=== PATIENT | female | born 1960 | race Hispanic/Latino ===

== ENCOUNTER 2019-02-22 21:39 | Emergency (ER) | payer OTHER ==
[~2019-02-22] VITALS: Ht 162.6 cm; Wt 63.5 kg
--- OUTSIDE RECORDS SUMMARY | 2019-02-22 21:42 | XMS REPORT | Encounter Summary ---
Author Organization Unknown Address [address] [place] [address] Phone [phone] Care Team Providers Care Service Control Operator Name Role Phone Dr. Chel Carmona 3 [phone] Flo Mcconnell MD 3 [phone] Joe Weiss MD Facp Face [phone] Reason for Visit sinus symptoms Instructions 1. Allergic rhinitis montelukast 10 mg tablet Dymista 137 mcg-50 mcg/spray nasal spray Discussion Note: None recorded. Patient educational handouts: No information available. Plan of Care Reminders Provider Appointments None recorded. Lab None recorded. Referral None recorded. Procedures None recorded. Surgeries None recorded. Imaging None recorded. Medications Name Start Date Dymista 137 mcg-50 mcg/spray nasal spray [place] 1 spray twice a day by intranasal route as directed for 30 days. estradiol 1 mg tablet montelukast 10 mg tablet Take 1 tablet every day by oral route as directed for 30 days. Synthroid 150 mcg tablet Zyrtec-D 5 mg-120 mg tablet,extended release Take 1 tablet every 12 hours by oral route. Medications Administered None recorded. Vitals Height Weight BMI Blood Pressure 5 ft 5.5 in 142.8 lbs 23.4 kg/m2 100/62 mm[Hg] Lab Results Date Name Specimen Result Interpretation Description Value Range Status Address 01/23/2019 Rapid Flu (A+B) Type Flu a negative [place] ([facility]) [place]: [address] [facility] Type Flu B negative [place] ([facility]) [place]: [address] [facility] Allergies Code Code System Name Reaction Severity Status Onset 0769161 RxNorm Sesame Seed Hives Severe Active Wellbutrin Active Problems Name Status Onset Date Source Hypothyroidism Active 03/30/2016 Anxiety Active 03/30/2016 Hypertensive Disorder Active 03/30/2016 Chronic Back Pain Active 03/30/2016 Patulous Eustachian Tube Active 06/26/2018 Procedures Date Name Performed by 07/08/2017 Other Information not available 07/08/2017 Other Information not available Hysterectomy (Partial) Information not available Colonoscopy Information not available Vaccine List Vaccine Type Influenza, injectable, MDCK, quadrivalent 06/03/20170.5 mL influenza, unspecified formulation 03/22/2016 Tdap 08/29/20160.5 mL Social History Tobacco Smoking Status Never Smoker Past Encounters 02/06/2019 Allergic Rhinitis Flo France MD: [address] [place] [address], Ph. 01/23/2019 Acute Sinusitis; Body Mass Index 20-24 - Normal; Sinus Headache Flo France MD: [address] [place] [address], Ph. History of Present Illness Note:F/u on acute sinusitis. Pt completed 10 days of augmentin 2 days ago and 5 days of medrol dose alfred on 01/30/19. However, she is complaining of persistent runny nose and sinus congestion. Denies sore throat, cough or fever. Pt had some improvement in the symptoms while taking the meds. Review of Systems Comprehensive General Adult ROS Reported By: Patient Constitutional: Constitutional: no fever Eyes: Eyes: no vision change, no irritation ENMT: Ears: difficulty hearing, ear pain. Nose: no frequent nosebleeds, no nose problems, sinus problems. Mouth/Throat: no sore throat Cardiovascular: Cardiovascular: no chest pain, no palpitations, no lightheadedness Respiratory: Respiratory: no cough, no wheezing, no shortness of breath, no coughing up blood Gastrointestinal: Gastrointestinal: no abdominal pain, no nausea, no vomiting, no diarrhea Neurologic: Neurologic: no headaches Endocrine: Endocrine: no fatigue Physical Exam General Adult Exam (male) Reported By: Patient Constitutional: General Appearance: healthy-appearing. Level of Distress: NAD Psychiatric: Insight: good judgement. Mental Status: active and alert, normal mood, normal affect. Orientation: to time, to place, to person. Memory: recent memory normal, remote memory normal Eyes: Lids and Conjunctivae: non-injected, no discharge. EOM: EOMI ENMT: Ears: TMs clear. Nose: sinus tenderness, nasal discharge--rhinorrhea, post nasal drip. Lips, Teeth, and Gums: no mouth or lip ulcers. Oropharynx: moist mucous membranes, no exudates, tonsils not enlarged, erythema Neck: Neck: supple, trachea midline. Lymph Nodes: no cervical LAD Lungs: Auscultation: breath sounds normal Cardiovascular: Heart Auscultation: RRR, normal S1, normal S2, no murmurs. Neck vessels: no carotid bruits Musculoskeletal:: Motor Strength and Tone: normal, normal tone. Extremities: no edema Neurologic: Gait and Station: normal gait
--- OUTSIDE RECORDS SUMMARY | 2019-02-22 21:42 | XMS REPORT ---
Author Jose Ashby [facility] eClinicalWorks Address Unknown Phone Unavailable Care Team Providers Care Director Geophysical Laboratory Name Role Phone Jose Lee CP Unavailable Allergies, Adverse Reactions, Alerts Substance Reaction Event Type N.K.D.A. Info Not Available Non Drug Allergy Problems Problem Type Condition Code Onset Dates Condition Status Assessment Patulous Eustachian tube, bilateral H69.03 Active Problem Arthralgia of bilateral temporomandibular joint M26.623 Active Problem Deviated nasal septum J34.2 Active Problem Unspecified Eustachian tube disorder, bilateral H69.93 Active Problem Patulous Eustachian tube, bilateral H69.03 Active Problem Headache R51 Active Problem Unspecified disorder of ear, unspecified ear H93.90 Active Problem Hearing loss, Sensorineural - Bilateral H90.3 Active Problem Hearing loss, Perceived- Bilateral H93.293 Active Problem Otalgia, bilateral H92.03 Active Assessment Headache R51 Active Assessment Hearing loss, Sensorineural - Bilateral H90.3 Active Assessment Arthralgia of bilateral temporomandibular joint M26.623 Active Assessment Deviated nasal septum J34.2 Active Medications Medication Code System Code Instructions Start Date End Date Status Dosage Synthroid [facility] [address]-99 Active not defined Results No Known Results Summary Purpose eClinicalWorks Submission
--- OUTSIDE RECORDS SUMMARY | 2019-02-22 21:42 | XMS REPORT | Clinical Summary ---
Author Author [facility] Address Unknown Phone Unavailable Care Team Providers Care Head Mva Reactor Operator Name Role Phone Asked, No Pcp PCP Unavailable Allergies Not on File Medications Not on file Active Problems Not on file Encounters Care Team Description Date Type Specialty 03/27/2018 Clinical Corporate Wellness Support after 02/21/2018 Immunizations Name Administration Dates Next Due FLUCELVAX QUAD PF (0.5mL 03/27/2018 syringe) Social History Date Tobacco Use Types Packs/Day Years Used Never Assessed Sex Assigned at Date Recorded Not on file Industry Job Start Date Occupation Not on file Not on file Not on file Travel End Travel History Travel Start No recent travel history available. Last Filed Vital Signs Not on file Plan of Treatment Health Maintenance Due Date Last Done Comments BREAST CANCER SCREENING 2011 COLONOSCOPY SCREENING 2011 SHINGLES VACCINES (#1) 2011 INFLUENZA VACCINE 02/05/2019 03/27/2018, 06/03/2017, 03/22/2016 Results Not on fileafter 02/21/2018 Insurance Type Payer Benefit Subscriber ID Effective Phone Address Plan / Dates Group PPO CIGNA CIGNA PPO xxxxxxxxxxx [id number] resent (Home) [place] [address] Advance Directives Patient Frontload Driver Explanation Type Date Recorded Advance Directives, Living Will and Medical Power of Assembly Worker
--- OUTSIDE RECORDS SUMMARY | 2019-02-22 21:42 | XMS REPORT ---
Author Jose Ashby [facility] eClinicalWorks Address Unknown Phone Unavailable Care Team Providers Care Rand Maker Name Role Phone Jose Lee CP Unavailable Allergies, Adverse Reactions, Alerts Substance Reaction Event Type N.K.D.A. Info Not Available Non Drug Allergy Problems Problem Type Condition Code Onset Dates Condition Status Assessment Hearing loss, Sensorineural - Bilateral H90.3 Active Assessment Deviated nasal septum J34.2 Active Problem Unspecified disorder of ear, unspecified ear H93.90 Active Problem Hearing loss, Sensorineural - Bilateral H90.3 Active Problem Otalgia, bilateral H92.03 Active Assessment Arthralgia of bilateral temporomandibular joint M26.623 Active Assessment Unspecified disorder of ear, unspecified ear H93.90 Active Problem Arthralgia of bilateral temporomandibular joint M26.623 Active Problem Deviated nasal septum J34.2 Active Medications Medication Code System Code Instructions Start Date End Date Status Dosage Robaxin-750 [facility] [id number] 750 MG Orally at bedtime January 27, 2018 Feb 26, 2018 Active 1/2 a tablet Synthroid [facility] [address]-84 Active not defined Results No Known Results Summary Purpose eClinicalWorks Submission
--- OUTSIDE RECORDS SUMMARY | 2019-02-22 21:42 | XMS REPORT | Encounter Summary ---
Author Organization Unknown Address [address] [place] [address] Phone [phone] Care Team Providers Care Pearler Name Role Phone Dr. Chel Carmona 3 [phone] Flo Mcconnell MD 3 [phone] Joe Weiss MD Facp Face [phone] Reason for Visit Hypothyroidism; Bilateral eye problem/disorder Instructions 1. Hypothyroidism TSH, serum or plasma T4, free, serum T3, free, serum or plasma 2. Body mass index 20-24 - normal 3. Allergic conjunctivitis Pataday 0.2 % eye drops hydroxyzine HCl 25 mg tablet 4. Patulous eustachian tube 5. Hypertensive disorder Discussion Note: None recorded. Patient educational handouts: No information available. Plan of Care Reminders Provider Appointments Return to Office on or around 12/30/2018 Chel Carmona MD Lab TSH, Serum or Plasma 09/29/2018 [facility] T4, Free, Serum 09/29/2018 [facility] T3, Free, Serum or Plasma 09/29/2018 [facility] Referral None recorded. Procedures None recorded. Surgeries None recorded. Imaging None recorded. Medications Name Start Date estradiol 1 mg tablet hydroxyzine HCl 25 mg tablet Take 1 tablet every day by oral route at bedtime. may be sedating Pataday 0.2 % eye drops INSTILL 1 DROP INTO AFFECTED EYE(S) BY OPHTHALMIC ROUTE ONCE DAILY Synthroid 137 mcg tablet Take 1 tablet every day by oral route. Medications Administered None recorded. Vitals Height Weight BMI Blood Pressure 5 ft 7 in 151.8 lbs 23.8 kg/m2 114/78 mm[Hg] Lab Results None recorded. Allergies Code Code System Name Reaction Severity Status Onset 5878668 RxNorm Sesame Seed Hives Severe Active 67418 RxNorm Wellbutrin Active NKDA Problems Name Status Onset Date Source Hypothyroidism Active 03/30/2016 Anxiety Active 03/30/2016 Hypertensive Disorder Active 03/30/2016 Chronic Back Pain Active 03/30/2016 Patulous Eustachian Tube Active 06/26/2018 Procedures Date Name Performed by 07/08/2017 Other Information not available 07/08/2017 Other Information not available 06/17/2014 Colonoscopy Information not available Hysterectomy (Partial) Information not available Vaccine List Vaccine Type Influenza, injectable, MDCK, quadrivalent 06/03/20170.5 mL influenza, unspecified formulation 03/22/2016 Tdap 08/29/20160.5 mL Social History Smoking Status Never Smoker Past Encounters 09/29/2018 Hypothyroidism; Body Mass Index 20-24 - Normal; Allergic Conjunctivitis; Patulous Eustachian Tube; Hypertensive Disorder Chel Carmona MD: [address] [place] [phone], Ph. 09/26/2018 Chel Carmona MD: [address] [place] [address], Ph. History of Present Illness Note:58yo female presents for three-month follow-up visit. Last visit 06/02/18. Since last visit, pt saw ENT Dr Andrew Hollis in [facility] the day after our appt on 06/03/18 - he placed ear tubes in both ears at that appt for patulous Eustachian tubes. Pt did not find that it helped. Next appt with Dr Hollis is October 10, 2018.<div>No pain, but ear pressure with amplified sound. Very frustrating.
<div>Since last visit, pt flew to [place] twice & did not feel any pressure change in fullness with elevation.</div><div>Since last visit, pt had f/u visit with Dr Michael last Saturday09/26/18. Next appt in 3mo in December 2018 (one-year follow-up). Pt had bloodwork in Jul 2018 - everything was good except thyroid. Pt had gastric sleeve surgery on 12/30/[address] Michael. Starting weight prior to surgery was about 212# - pt currently weighs 151.8# on our office scale today. Has lost over 50# since surgery in December! Sees Dr Michael every three months. Is taking multivitamin from Dr Michael's office every day in addition to calcium. He is monitoring bloodwork closely.</div><div><div> Regarding thyroid, pt is currently taking Synthroid 137mcg/day. Last TSH on 05/09 12/23 was 0.005 with prior TSH on 02/18/18 was suppressed at 0.009. Will check TS H today.</div><div>Allergies: wellbutrin
</div><div>Nonsmoker.</div><div>Here today for rash around eyes since yesterday. Swelling around eyes L>R. No change in vision, no fever, no redness to eye, no watery eyes, no pus. Some dry, itchy eyelids, not eyes. No new makeup or eye cream. Has Zyrtec, but hasn't been using it.</div></div></div> Review of Systems:ROS as noted in the HPI Review of Systems Comprehensive General Adult ROS Reported By: Patient Constitutional: Constitutional: no fever Eyes: Eyes: no vision change, dry eyes, irritation ENMT: Ears: difficulty hearing, ear pain. Nose: no frequent nosebleeds, no nose problems, no sinus problems. Mouth/Throat: no sore throat Cardiovascular: Cardiovascular: no chest pain Respiratory: Respiratory: no cough, no wheezing, no shortness of breath, no coughing up blood Gastrointestinal: Gastrointestinal: no abdominal pain, no nausea, no vomiting, no diarrhea Neurologic: Neurologic: no headaches Endocrine: Endocrine: no fatigue Physical Exam Upper Respiratory Infection Exam Comprehensive Reported By: Patient Constitutional: General Appearance in no acute distress Skin: Inspection and palpation: no rash Head: Sinuses no tenderness Eyes: Pupils EOM intact, PERRLA, conjunctiva non-injected; see photo of left eyelids Ears: Right External auditory canal normal appearance. Left External auditory canal normal appearance. Right Tympanic membrane dull; green ear tube intact. Left Tympanic membrane: dull; green ear tube intact Nose: Nasal Skin: no lesion. Nasal Mucosa normal Oral Cavity/Mouth: Oral Mucosa: normal, moist. Posterior pharynx: normal Lymph Nodes: Cervical no palpable lymph node enlargement, no submandibular adenopathy, no posterior cervical adenopathy, no anterior cervical adenopathy Neck: Neck symmetrical Lungs: Respiratory effort unlabored. Auscultation breath sounds normal, no wheezing, no rales / crackles Cardiovascular System: Auscultation regular rate and rhythm, no murmur. Observation/Palpation of peripheral vascular system carotid pulse normal, no edema
--- OUTSIDE RECORDS SUMMARY | 2019-02-22 21:42 | XMS REPORT ---
Author Jose Ashby [facility] eClinicalWorks Address Unknown Phone Unavailable Care Team Providers Care Rejected Items Clerk Name Role Phone Jose Lee CP Unavailable Allergies No Known Allergies Problems Problem Type Condition Code Onset Dates Condition Status Problem Otalgia, bilateral H92.03 Active Problem Unspecified disorder of ear, unspecified ear H93.90 Active Problem Patulous Eustachian tube, bilateral H69.03 Active Problem Unspecified Eustachian tube disorder, bilateral H69.93 Active Problem Hearing loss, Perceived- Bilateral H93.293 Active Problem Deviated nasal septum J34.2 Active Problem Hearing loss, Sensorineural - Bilateral H90.3 Active Problem Headache R51 Active Problem Arthralgia of bilateral temporomandibular joint M26.623 Active Medications No Known Medications Results No Known Results Summary Purpose [place] ObjectsinicalWorks Submission
--- OUTSIDE RECORDS SUMMARY | 2019-02-22 21:42 | XMS REPORT ---
Author Jose Ashby [facility] eClinicalWorks Address Unknown Phone Unavailable Care Team Providers Care Continuous Washer Operator Name Role Phone Jose Lee CP Unavailable Allergies No Known Allergies Problems Problem Type Condition Code Onset Dates Condition Status Problem Unspecified disorder of ear, unspecified ear H93.90 Active Problem Hearing loss, Sensorineural - Bilateral H90.3 Active Problem Otalgia, bilateral H92.03 Active Problem Arthralgia of bilateral temporomandibular joint M26.623 Active Problem Deviated nasal septum J34.2 Active Medications No Known Medications Results No Known Results Summary Purpose eClinicalWorks Submission
--- OUTSIDE RECORDS SUMMARY | 2019-02-22 21:42 | XMS REPORT ---
Author Author [facility] Address Unknown Phone Unavailable Care Team Providers Care Entry Engineer Name Role Phone Unavailable Unavailable Problems This patient has no known problems. Allergies, Adverse Reactions, Alerts This patient has no known allergies or adverse reactions. Medications This patient has no known medications. Results Test Description Test Time Test Comments Text Results Atomic Results Result Comments SCR MAMM BILATERAL MOISES CAD DIGITAL 2018-08-04 13:08:23 - SCR MAMM BILATERAL MOISES CAD DIGITALBILATERAL DIGITAL SCREENING MAMMOGRAM 3D/2D WITH CAD: 08/02/2018CLINICAL: Asymptomatic. Digital breast tomosynthesis was performed in addition to routine CC and MLO views. Current mammographic images were evaluated by either a Endorse.me M-Vu or a Captricity ImageChecker CAD (computer aided detection system). Comparison is made to exams dated 08/01/2017 ultrasound, mammogram - [facility], 03/30/2016 ultrasound, 03/30/2016 mammogram, 04/30/2015 mammogram, and 04/07/2014 mammogram - [facility]. The tissue of both breasts is predominantly fatty. No suspicious mass, architectural distortion, malignant type calcification, or lymph node abnormality detected. Breast architecture is stable compared to prior exams.IMPRESSION: NEGATIVEThere is no mammographic evidence of malignancy. Resume annual screening mammography in one year. Chiara pringle/penniki:08/04/2018 13:08:23 Cio: Kathy COBIAN, [facility] sent: BIRADS 1-2 Normal Mammogram BI-RADS: 1 Negative
--- OUTSIDE RECORDS SUMMARY | 2019-02-22 21:42 | XMS REPORT | Encounter Summary ---
Author Organization Unknown Address [address] [place] [address] Phone [phone] Care Team Providers Care Nursing Educator Name Role Phone Dr. Chel Carmona 3 [phone] Flo Mcconnell MD 3 [phone] Joe Weiss MD Facp Face [phone] Reason for Visit sinus symptoms; Left ear pain/problem; headaches Instructions 1. Acute sinusitis Augmentin 875 mg-125 mg tablet Kenalog 40 mg/mL suspension for injection Medrol (Maxime) 4 mg tablets in a dose pack 2. Body mass index 20-24 - normal 3. Sinus headache rapid flu (A+B) Discussion Note: None recorded. Patient educational handouts: No information available. Plan of Care Reminders Provider Appointments None recorded. Lab Rapid Flu (A+B) 01/23/2019 [facility] [place] Referral None recorded. Procedures None recorded. Surgeries None recorded. Imaging None recorded. Medications Name Start Date Augmentin 875 mg-125 mg tablet Take 1 tablet every 12 hours by oral route as directed for 10 days. estradiol 1 mg tablet fluticasone propionate 50 mcg/actuation nasal spray,suspension [place] 1 spray twice a day by intranasal route as directed for 14 days. Kenalog 40 mg/mL suspension for injection Take 40 mg by injection route. Medrol (Maxime) 4 mg tablets in a dose pack Take 1 dose pk by oral route. Synthroid 150 mcg tablet Zyrtec 10 mg tablet Take 1 tablet every 12 hours by oral route. Medications Administered Name Date Kenalog 40 mg/mL suspension for injection Take 40 mg by injection route. [id number]:00 Vitals Height Weight BMI Blood Pressure 5 ft 5.5 in 144.6 lbs 23.7 kg/m2 118/72 mm[Hg] Lab Results None recorded. Allergies Code Code System Name Reaction Severity Status Onset 5869159 RxNorm Sesame Seed Hives Severe Active Wellbutrin Active NKDA Problems Name Status Onset [...] History Smoking Status Never Smoker Past Encounters 01/23/2019 Acute Sinusitis; Body Mass Index 20-24 - Normal; Sinus Headache Flo France MD: [address] [place] [phone], Ph. History of Present Illness Note:Pt is complaining of runny nose, nasal congestion, sinus pressure, left ear pain, dry cough and sore throat since 1 month ago. Not better with zyrtec or fluticasone NS. Denies sob, wheezing or chest pain Review of Systems:ROS as noted in the HPI Review of Systems None recorded. Physical Exam General Adult Exam (male) Reported By: Patient Constitutional: General Appearance: healthy-appearing. Level of Distress: NAD Psychiatric: Insight: good judgement. Mental Status: active and alert, normal mood, normal affect. Orientation: to time, to place, to person. Memory: recent memory normal, remote memory normal Eyes: Lids and Conjunctivae: non-injected, no discharge. EOM: EOMI ENMT: Ears: TMs clear. Nose: sinus tenderness, nasal discharge--purulent, post nasal drip. Lips, Teeth, and Gums: no mouth or lip ulcers. Oropharynx: moist mucous membranes, no exudates, tonsils not enlarged, erythema Neck: Neck: supple, trachea midline. Lymph Nodes: cervical LAD Lungs: Auscultation: breath sounds normal Cardiovascular: Heart Auscultation: RRR, normal S1, normal S2, no murmurs. Neck vessels: no carotid bruits Musculoskeletal:: Motor Strength and Tone: normal, normal tone. Extremities: no edema Neurologic: Gait and Station: normal gait Skin: Inspection and palpation: no rash, no lesions
--- OUTSIDE RECORDS SUMMARY | 2019-02-22 21:42 | XMS REPORT ---
Author Jose Ashby [facility] eClinicalWorks Address Unknown Phone Unavailable Care Team Providers Care Electrolytic Etcher Name Role Phone Jose Lee CP Unavailable [...] Medications Results No Known Results Summary Purpose [place] [employer] Submission
--- OUTSIDE RECORDS SUMMARY | 2019-02-22 21:42 | XMS REPORT ---
Author Jose Ashby [facility] eClinicalWorks Address Unknown Phone Unavailable Care Team Providers Care Cloth Wire Weaver Name Role Phone Jose Lee CP Unavailable [...] Start Date End Date Status Dosage Robaxin-750 [facility] [id number] 750 MG Orally at bedtime January 27, 2018 Feb 26, 2018 Active 1/2 a tablet Synthroid [facility] [address]-96 Active not defined Results No Known Results Summary Purpose eClinicalWorks Submission
--- OUTSIDE RECORDS SUMMARY | 2019-02-22 21:42 | XMS REPORT | Encounter Summary ---
Author Organization Unknown Address [address] [place] [id number] Phone [phone] Care Team Providers Care Breast Surgeon Name Role Phone Dr. Chel Carmona 3 [phone] Flo Mcconnell MD 3 [phone] Joe Weiss MD Facp Face [phone] Reason for Visit cough / congestion Instructions 1. Body mass index 20-24 - normal 2. Acute bronchitis ceftriaxone 1 gram solution for injection Zithromax Z-Maxime 250 mg tablet Cheratussin AC 10 mg-100 mg/5 mL oral liquid Discussion Note: None recorded. Patient educational handouts: No information available. Plan of Care Patient Instructions meds as directed Reminders Provider Appointments None recorded. Lab None recorded. Referral None recorded. Procedures None recorded. Surgeries None recorded. Imaging None recorded. Medications Name Start Date Cheratussin AC 10 mg-100 mg/5 mL oral liquid Take 10 mL every 4 hours by oral route. estradiol 1 mg tablet Synthroid 137 mcg tablet TAKE 1 TABLET BY MOUTH EVERY DAY Zithromax Z-Maxime 250 mg tablet TAKE 2 TABLETS (500 MG) BY ORAL ROUTE ONCE DAILY FOR 1 DAY THEN 1 TABLET (250 MG) BY ORAL ROUTE ONCE DAILY FOR 4 DAYS Medications Administered None recorded. Vitals Height Weight BMI Blood Pressure 5 ft 5.5 in 144.6 lbs 23.7 kg/m2 124/72 mm[Hg] Lab Results Date Name Specimen Result Interpretation Description Value Range Status Address 09/29/2018 T3, Free, Serum or Plasma T3 Free 2.66 pg/mL 1.71-3.71 pg/mL [facility]: [address] [address], [place] 09/29/2018 T4, Free, Serum T4 Free 1.40 NG/dL 0.70-1.48 NG/dL [facility]: [address] [address], [place] 09/29/2018 TSH, Serum or Plasma Low Tsh see comment uIU/mL 0.350-4.940 uIU/mL Final [facility]: [address] [facility] [address], [place] Allergies Code Code System Name Reaction Severity Status Onset 4197290 RxNorm Sesame Seed Hives Severe Active 58573 RxNorm Wellbutrin Active NKDA Problems Name Status [...] History Smoking Status Never Smoker Past Encounters 10/30/2018 Body Mass Index 20-24 - Normal; Acute Bronchitis Christian Rudd MD: [address] [place] [phone], Ph. 09/29/2018 Hypothyroidism; Body Mass Index 20-24 - Normal; Allergic Conjunctivitis; Patulous Eustachian Tube; Hypertensive Disorder Chel Carmona MD: [address] [place] [phone], Ph. History of Present Illness Note:1 week h/o congestion /none productive cough<div>anticipating bl eustachian tube surgery in 2 weeks</div> Review of Systems:ROS as noted in the HPI Review of Systems None recorded. Physical Exam Upper Respiratory Infection Exam Comprehensive Reported By: Patient Constitutional: General Appearance in no acute distress Skin: Inspection and palpation: no rash, no lesions, no ulcer, good turgor, no jaundice Head: Sinuses no tenderness Eyes: Pupils EOM intact, PERRLA, conjunctiva non-injected Ears: Right External auditory canal normal appearance, no obstruction, no erythema, no discharge. Left External auditory canal normal appearance, no obstruction, no erythema, no discharge. Right Tympanic membrane mobile with pneumatic otoscopy, pearly xiong, landmarks clear; tube in situ. Left Tympanic membrane: mobile with pneumatic otoscopy, pearly xiong, landmarks clear; tube in situ Nose: Nasal Skin: no lesion, no lacerations. Nasal Mucosa normal, pink and moist Oral Cavity/Mouth: Lips, teeth, gums normal lips, normal gums. Oral Mucosa: normal, moist, no lesions. Palate: normal hard palate, normal soft palate. Tongue: normal tongue, no lesion, no edema. Tonsils: normal tonsils, no lesions. Posterior pharynx: normal Lymph Nodes: Cervical no palpable lymph node enlargement, no submandibular adenopathy, no posterior cervical adenopathy, no anterior cervical adenopathy, no supraclavicular adenopathy Neck: Neck symmetrical, trachea midline Lungs: Respiratory effort unlabored. Auscultation breath sounds normal, no wheezing, no rales / crackles, no rhonchi Cardiovascular System: Auscultation regular rate and rhythm, no murmur, no rubs, no gallops. Observation/Palpation of peripheral vascular system no varicosities, carotid pulse normal, no edema
--- OUTSIDE RECORDS SUMMARY | 2019-02-22 21:42 | XMS REPORT ---
Author Jose Ashby [facility] [employer] Address Unknown Phone Unavailable Care Team Providers Care Surgical Instruments Inspector Name Role Phone Jose Lee CP Unavailable [...]
[2019-02-22] MEDS ORDERED: ASPIRIN 81 MG CHEW TAB PO ONE (22:00)
[2019-02-22] MEDS ORDERED: KETOROLAC TROMETHAMINE 30 MG/ML VIAL IV STA (22:05)
[2019-02-22] MEDS ORDERED: ONDANSETRON HCL INJ 2MG/ML 2ML 2 MG/ML VIAL IV STA (22:05)
[2019-02-22] MEDS ORDERED: SODIUM CHLORIDE 0.9% 1000ML 1,000 ML IV SCH (22:15)
[2019-02-22 22:19] LABS: BASOPHILS % 0.2 % (0.0-1.0); EOSINOPHILS # (AUTO) 0.1 (0.0-0.4); EOSINOPHILS % 1.4 % (0.0-6.0); HEMATOCRIT 38.1 % (34.2-44.1); HEMOGLOBIN 12.9 g/dL (12.0-16.0); LYMPHOCYTES # (AUTO) 3.3 (1.0-3.2); LYMPHOCYTES % 32.5 % (18.0-39.1); MEAN CORPUSCULAR HEMOGLOBIN 32.6 pg (28-32); MEAN CORPUSCULAR HGB CONC 33.9 g/dL (31-35); MEAN CORPUSCULAR VOLUME 96.2 fL (81-99); MONOCYTES # (AUTO) 0.7 (0.2-0.8); MONOCYTES % 6.8 % (4.4-11.3); NEUTROPHILS # (AUTO) 5.9 (2.1-6.9); NEUTROPHILS % 58.7 % (38.7-80.0); PLATELET COUNT 268 x10e3/uL (140-360); RED BLOOD COUNT 3.96 x10e6/uL (3.6-5.1)
[2019-02-22 22:38] LABS: ALANINE AMINOTRANSFERASE 22 IU/L (0-55); ALBUMIN 3.7 g/dL (3.5-5.0); ALBUMIN/GLOBULIN RATIO 1.1 (0.8-2.0); ALKALINE PHOSPHATASE 106 IU/L (40-150); ANION GAP 13.4 mmol/L (8-16); BLOOD UREA NITROGEN 17 mg/dL (7-26); BUN/CREATININE RATIO 23 (6-25); CALCIUM 9.4 mg/dL (8.4-10.2); CARBON DIOXIDE 24 mmol/L (22-29); CHLORIDE 107 mmol/L (98-107); CREATINE KINASE 46 IU/L (29-168); CREATININE, SERUM 0.73 mg/dL (0.57-1.11); EST GLOMERULAR FILTRATION RATE > 60 ML/MIN (60-); GLUCOSE 106 mg/dL (74-118); POTASSIUM 3.4 mmol/L (3.5-5.1); SODIUM 141 mmol/L (136-145)
--- NOTE | 2019-02-22 23:21 | Diagnostic Imaging Report ---
RIGHT UPPER QUADRANT ULTRASOUND TECHNIQUE: Ultrasound evaluation of the right upper quadrant abdomen. Color Doppler evaluation was utilized to supplement the evaluation. HISTORY: Right upper quadrant pain COMPARISON: None available. DISCUSSION: LIVER: No focal lesion identified. The liver measures 14 cm in length in the right mid-clavicular line. BILIARY: Two nonmobile foci contiguous with the gallbladder wall, one year 0.5 cm and the other 0.7 cm. No gallbladder wall thickening, or pericholecystic fluid. The sonographic Patten's sign is reported as negative. Common bile duct measures up to 1 cm. RIGHT KIDNEY: 11 cm in length. No hydronephrosis, solid mass, or cystic lesion identified. Incidental 1.3 x 1 x 1.3 cm interpolar simple cyst. PANCREAS: Partially obscured by regional bowel gas, but no abnormality identified within this limitation. PERITONEUM: No free fluid. VASCULATURE: The visualized portions of the aorta and inferior vena cava appear unremarkable. The portal vein is patent with hepatopedal flow. IMPRESSION: 1. Dilated common bile duct, without an identified common bile duct stone. Correlate with laboratory values for evidence of biliary obstruction. 2. Two gallbladder polyps. If the patient has increased risk of gallbladder cancer, recommend a follow-up ultrasound in one year for surveillance. Signed by: Dr. Joel De Santiago D.O., M.M.M. on 02/22/2019 11:18 PM
--- NOTE | 2019-02-22 23:43 | Diagnostic Imaging Report ---
A single frontal view of the chest. HISTORY: Nausea, pain COMPARISON: None available. DISCUSSION: Portable technique, limits sensitivity of the exam. Tubes/Lines: None Lungs and pleura: The lungs are well inflated. No evidence of a consolidative pneumonia or pulmonary alveolar edema. No definite pleural effusion or pneumothorax is identified. Heart and mediastinum: The cardiomediastinal silhouette appear(s) unremarkable. Bones and soft tissues: Appear unremarkable, given this limited exam. IMPRESSION: No acute radiographic abnormality. Signed by: Dr. Joel De Santiago D.O., M.M.M. on 02/22/2019 11:40 PM
[2019-02-23 00:48] LABS: BILIRUBIN,URINE NEGATIVE (NEGATIVE); CLARITY,URINE CLEAR (CLEAR); COLOR,URINE YELLOW (YELLOW); LEUKOCYTE ESTERASE ,URINE NEGATIVE (NEGATIVE); NITRITE,URINE NEGATIVE (NEGATIVE); PROTEIN,URINE DIPSTICK NEGATIVE (NEGATIVE); URINE UROBILINOGEN 1 mg/dL (0.2 - 1)
[2019-02-23 00:50] LABS: KETONES,URINE 2+ (NEGATIVE)
[2019-02-23 01:31] LABS: BACTERIA,URINE RARE /HPF; EPITHELIAL CELLS,URINE RARE /LPF; MUCUS,URINE MANY (RARE); RBC,URINE 0-5 /HPF (0-5); WBC,URINE (MAN) 0-5 /HPF (0-5)
[2019-02-23] MEDS ORDERED: ULTRAM50 MG PO (01:41)
[2019-02-23] MEDS ORDERED: ZOFRAN4 MG SL (01:41)
[2019-02-23 02:31] VITALS: BP 107/70
== END 2019-02-23 02:33 | disposition home or self-care (01) ==
LOC: ER 21:39
DX: R10.11 Right upper quadrant pain (principal); R11.0 Nausea; K80.70 Calculus of gallbladder and bile duct without cholecystitis without obstruction; Z98.84 Bariatric surgery status; E03.9 Hypothyroidism, unspecified
CPT/HCPCS: 36415; 71045; 76705; 80053; 81001; 82550; 82553; 83690; 84484; 85025; 93005; 96374; 96375; 99284; J1885; J2405; J7030

== ENCOUNTER → 2019-03-06 | Outpatient (CLI) | payer OTHER ==
[~2019-03-06] MED LIST: GADOBENATE DIMEGLUMINE 1 ML IV ONE; SODIUM CHLORIDE 0.9% 100 ML 100 ML ONE; ULTRAM50 MG PO; ZOFRAN4 MG SL
--- NOTE | 2019-03-06 16:37 | Diagnostic Imaging Report ---
MRI/MRCP of the abdomen, with and without contrast, 03/06/2019. History: Abdominal pain. Comparison: Ultrasound 02/22/2019. Technique: Multiplanar, multisequence imaging of the abdomen was performed pre- and post-IV administration of 12 cc of MultiHance. Dynamic enhanced images of the liver were included. 3-D MRCP fat-saturated sequence was performed post contrast with MIP reformations. Discussion: The gallbladder is normal without evidence of filling defect or enhancement. The intrahepatic and extra hepatic biliary ducts are normal in appearance. CBD measures 6 mm in diameter. No filling defects are seen. The liver contour and size are normal. There is no evidence of an enhancing lesion. The hepatic, portal, splenic, and mesenteric veins are patent. The portal vein is normal in size measuring 1.2 cm in diameter. There is no evidence of ascites. A small simple cyst is present in the right kidney. The spleen, pancreas, left kidney, and adrenal glands are normal in appearance. The visualized loops of bowel and osseous structures are normal. There is no evidence of adenopathy. IMPRESSION: 1. No evidence of cholelithiasis or choledocholithiasis. Small gallbladder polyps described on ultrasound are not visible on MRI. 2. Simple right renal cyst. Otherwise unremarkable exam. Signed by: Gibson Horn on 03/06/2019 4:34 PM
== END ==
LOC: MRI 14:23
PROVIDERS: ATTEND Surgery
DX: R10.10 Upper abdominal pain, unspecified (principal); R94.5 Abnormal results of liver function studies; K82.4 Cholesterolosis of gallbladder; N28.1 Cyst of kidney, acquired
CPT/HCPCS: 74183; A9577